=== PATIENT | male | born 1980 | race Caucasian/White ===

== ENCOUNTER 2017-09-06 20:35 | Emergency (ER) | payer OTHER ==
[2017-09-06] MEDS ORDERED: BUFFERED LIDOCAINE 10 ML SYRINGE IU ONE (20:45)
[2017-09-06 20:50] VITALS: BP 125/84
--- NOTE | 2017-09-06 20:54 | ED Physician Documentation ---
PD HPI UPPER EXT INJURY - Stated complaint Stated Complaint: 3 FINGER LAC - Chief complaint Chief Complaint: Laceration - History obtained from History obtained from: Patient - History of Present Illness Location: Other (Right-handed gentleman who is up-to-date on tetanus was pulling on a file cabinet drawer and had a sharp edge on it and a lacerated the pulp of the second third and fourth fingers of the left hand.) Review of Systems Constitutional: reports: Reviewed and negative Throat: reports: Reviewed and negative Cardiac: reports: Reviewed and negative PD PAST MEDICAL HISTORY - Past Medical History Past Medical History: Yes Cardiovascular: None Respiratory: None Neuro: None Endocrine/Autoimmune: None GI: None : None HEENT: None Psych: None Musculoskeletal: None Derm: None - Past Surgical History Past Surgical History: No - Present Medications Home Medications: Ambulatory Orders Medication Instructions Recorded Confirmed No Known Home Medications [No 09/06/17 09/06/17 Known Home Medications] - Allergies Allergies/Adverse Reactions: Allergies Allergy/AdvReac Type Severity Reaction Status Date / Time No Known Drug Allergies Allergy Verified 09/06/17 20:43 - Social History Does the pt smoke?: No Smoking Status: Never smoker Does the pt drink ETOH?: Yes Does the pt have substance abuse?: No - Immunizations Immunizations are current?: Yes - POLST Patient has POLST: No PD ED PE NORMAL - Vitals Vital signs reviewed: Yes - General General: Alert and oriented X 3, No acute distress - Extremities Extremities: Other (On the palmar/pulp surface of the third fourth and second digits of the left hand there are lacerations, the fourth digit has a very small and that only needs one suture but more extensive lacerations on the second and third, but with normal neurovascular status distal to the lacerations.) - Neuro Neuro: Alert and oriented X 3, Normal speech Results - Vitals Vitals: Vital Signs - 24 hr 09/06/17 20:39 Temperature 36.6 C Heart Rate 77 Respiratory 17 Rate Blood Pressure 125/84 H O2 Saturation 96 Oxygen O2 Source Room air Procedures - Laceration (location) Left 2nd/3rd/4th fingers Length in cm: 6 Wound type: Linear, Other (The wound on the fourth finger was deeper than it looked on initial evaluation and all 3 fingers needed suturing.) Neurovascular status: Sensory intact, Motor intact, Vascular intact Anesthesia: Lidocaine 1% (Digital blocks of the affected fingers with buffered lidocaine) Wound Preparation: Betadine, Irrigated copiously NS Skin layer closure: Nylon, Size #-0 - enter number (5-0), Sutures - enter # (4 in the third and fourth fingers and 6 in the second finger) Other: Patient tolerated well, No complications, Neurovascular intact, Tetanus UTD Complexity: Simple Departure - Departure Disposition: 01 Home, Self Care Clinical Impression: Laceration Condition: Good Record reviewed to determine appropriate education?: Yes Instructions: ED Laceration All Comments: Come back for any signs of infection which would include: Redness, swelling, drainage, increased pain, or fevers. Follow-up with your physician in 14 days for suture removal. Your blood pressure was elevated today on check into the emergency department. This does not mean that you have hypertension, it is a common phenomenon to come to the emergency department and have elevated blood pressure. I recommend that you see your primary care physician within the week to have it rechecked when you are feeling better. Forms: Activity restrictions
== END 2017-09-06 21:37 | disposition home or self-care (01) ==
LOC: ED 20:35
DX: S61.210A Laceration without foreign body of right index finger without damage to nail, initial encounter (principal); S61.212A Laceration without foreign body of right middle finger without damage to nail, initial encounter; S61.214A Laceration without foreign body of right ring finger without damage to nail, initial encounter; W45.8XXA Other foreign body or object entering through skin, initial encounter; R03.0 Elevated blood-pressure reading, without diagnosis of hypertension
CPT/HCPCS: 12002; 99283